=== PATIENT | female | born 1935 | race Hispanic/Latino ===

== ENCOUNTER 2017-11-19 12:56 | Outpatient (CLI) | payer MEDICARE, OTHER ==
--- NOTE | 2017-11-19 16:52 | Mammography Report ---
BONE DEXA:11/19/17 12:56:00 CLINICAL: Postmenopausal. COMPARISON: 11/21/11 TECHNIQUE: Two site bone DEXA performed on an Hologic scanner. FINDINGS: The average BMD of the lumbar spine L1, L3 and L4 is 0.827g/cm squared with a T-score of -2.1 and a Z-score of +0.7. The L2 vertebral body is excluded as an outlier. This compares to 0.857g/cm squared on the last exam and represents a -3.6% change from the previous baseline. The average BMD of the left hip is 0.641g/cm squared with a T-score of -2.5 and a Z-score of -0.3. This compares to 0.711g/cm squared on the last exam and represents a -0.9% change from the previous baseline. IMPRESSION: 1. WHO classification: Osteopenia with increased fracture risk based on spine measurements. 2. WHO classification: Osteoporosis with high fracture risk based on left hip measurements. 3. A moderate decline in both spine and left hip BMD compared to the previous exam. RECOMMENDATION: Clinical correlation and routine screening. DEFINITIONS: BMD = Bone Mineral Density T-score = BMD related to mean peak bone mass of young adult (mean expressed in Standard Deviation) Z-score = Age matched BMD expressed in SD World Health Organization (WHO) Diagnostic Criteria Normal T-score > -1 SD Osteopenia T-score between -1 and -2.4 SD Osteoporosis T-score -2.5 SD or below NOTE: BMD is not the only risk factor for fracture; also consider factors such as the patient's age, risk of falling, previous osteoporotic fracture, family history of osteoporotic fractures, current smoker, and low body weight. Z-scores are not calculated if >80 years of age.
== END 2017-11-19 12:57 | disposition home or self-care (01) ==
LOC: MAMMO 12:56
PROVIDERS: ATTEND Family Medicine
DX: Z78.0 Asymptomatic menopausal state (principal); M81.0 Age-related osteoporosis without current pathological fracture; M85.80 Other specified disorders of bone density and structure, unspecified site; F17.210 Nicotine dependence, cigarettes, uncomplicated; Z88.1 Allergy status to other antibiotic agents
CPT/HCPCS: 77080

== ENCOUNTER 2019-03-21 10:36 | Outpatient (CLI) | payer MEDICARE, OTHER ==
--- NOTE | 2019-03-26 08:40 | Mammography Report ---
BONE DEXA CLINICAL: Postmenopausal. COMPARISON: 11/19/2017 and 11/21/2011. She has had earlier studies at the 2012 exam is uses a baseline for comparing this study and the last study. TECHNIQUE: 2 site bone DEXA performed on an Hologic scanner. FINDINGS: The average BMD of the lumbar spine L1-L4 is 0.860g/cm squared with a T score of -1.7+1.1 and a Z sco re of . This compares to 0.858g/cm squared on the last exam and represents a +0.2 % change from the l ast study and a -3.6% change [from baseline]. The average BMD of the left hip is 0.629 g/cm squared with a T score of -2.6and a Z score of -0.3. Th is compares to 0.641 g/cm squared on the last exam and represents a -1.8 % change from the [last stud y and a -11.5% change from baseline]. IMPRESSION: 1. WHO classification: Osteopenia with increased fracture risk based on spine measurements. 2. WHO classification Osteoporosis with high fracture risk based on left hip measurements. 3. A modest improvement in spine BMD and a modest decline in left hip BMD the compared to the last ex am. RECOMMENDATION: Clinical correlation and routine screening. Definitions: BMD equal bone mineral density T score = BMD related to peak bone mass of young adult ([place] expressed an standard deviation) Z score = age-matched BMD expressed in SD World health organization (WHO) diagnostic criteria Normal T score greater than equal to 1 standard deviation Osteopenia T score between -1 and -2.4 standard deviation Osteoporosis T score -2.5 standard deviation or below. Note: BMD is not the only risk factor for fracture; also consider factors such as the patient's age, risk of falling, previous osteoporotic fracture, family history of osteoporotic fractures, current sm oker and low body weight. Z scores are not calculated if greater than 80 years of age. Signer Name: Corby Clemens MD Signed: 03/26/2019 8:35 AM Workstation Name: [id number]
== END 2019-03-21 10:37 | disposition home or self-care (01) ==
LOC: MAMMO 10:36
PROVIDERS: ATTEND Family Medicine
DX: M81.0 Age-related osteoporosis without current pathological fracture (principal); Z78.0 Asymptomatic menopausal state
CPT/HCPCS: 77080

== ENCOUNTER 2020-06-11 12:44 | Outpatient (CLI) | payer MEDICARE, OTHER ==
--- NOTE | 2020-06-11 14:27 | Mammography Report ---
DEXA BONE DENSITY SCAN INDICATION / CLINICAL INFORMATION: OSTEOPOROSIS. 84 years Female COMPARISON: 05/21/2018. LUMBAR SPINE, L1-L4: - Bone mineral density (BMD) = 0.860 g/cm2. - T-score = -1.7 - Z-score = 1.2 Change (%) since most recent prior (if available): No change LEFT HIP, TOTAL : - Bone mineral density (BMD) = 0.636 g/cm2. - T-score = -2.5 - Z-score = -0.2 Change (%) since most recent prior (if available): Increase of 1.1% IMPRESSION: 1. WHO Classification: Osteoporosis. Fracture Risk: High. BMD Reporting Guidelines (ISCD, 2015) BMD Reporting in Postmenopausal Women and in Men Age 50 and Older * T-scores are preferred. * The WHO densitometric classification is applicable. BMD Reporting in Females Prior to Menopause and in Males Younger Than Age 50 * Z-scores, not T-scores, are preferred. This is particularly important in children. * A Z-score of -2.0 or lower is defined as below the expected range for age, and a Z-score above -2. 0 is within the expected range for age. * Osteoporosis cannot be diagnosed in men under age 50 on the basis of BMD alone. * The WHO diagnostic criteria may be applied to women in the menopausal transition. http://www.iscd.org/official-positions/4069-maqd-bnlqstkc-positions-adult/ Signer Name: Derek Hilton MD Signed: 06/11/2020 2:22 PM Workstation Name: [id number]
== END 2020-06-11 12:45 | disposition home or self-care (01) ==
LOC: MAMMO 12:44
PROVIDERS: ATTEND Physician Assistant
DX: Z13.820 Encounter for screening for osteoporosis (principal); M81.0 Age-related osteoporosis without current pathological fracture
CPT/HCPCS: 77080

== ENCOUNTER 2020-07-07 09:21 | Outpatient (CLI) | payer MEDICARE, OTHER ==
--- NOTE | 2020-07-07 12:15 | Cat Scan Report ---
CTA ABDOMEN AND PELVIS WITHOUT AND WITH IV CONTRAST INDICATION: ANEURYSM OF OTHER SPECIFIED ARTERIES. TECHNIQUE: Axial CT images were obtained through the abdomen and pelvis before and after after injection of IV c ontrast. 3 plane MIP reconstructions were produced. All CT scans at this location are performed using CT dose reduction for ALARA by means of automated exposure control. COMPARISON: None available. FINDINGS: Aorta: Caliber of the abdominal aorta is normal. No acute findings. There is advanced atherosclerotic disease throughout with mild mural thrombus at the diaphragmatic hiatus. Renal arteries: No acute abnormality. Celiac artery: There is mild narrowing proximally. 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 There are 3 additional, smaller more peripheral sp lenic artery aneurysms/pseudoaneurysms which are largely thrombosed and measure approximately 4-6 mm. Superior mesenteric artery: Mild narrowing proximally. Inferior mesenteric artery: No acute abnormality. Right iliac arteries: No acute abnormality. There is minimal atherosclerotic calcification proximal c ommon iliac. Left iliac arteries: No acute abnormality. There is minimal atherosclerotic calcification proximally. Additional Findings: None millimeter hypodensity in the superior left hepatic lobe may be a cyst or i ncidental vascular lesion. Diverticulosis is noted in the colon. Bronchiectasis and lower airways dis ease are noted in the included lung bases. This is of uncertain chronicity. Cardiomegaly is noted tracey reese involving the atria. Skeletal Structures: No acute osseous abnormality. IMPRESSION: 1. No acute findings. 2. Advanced atherosclerotic disease throughout the abdominal aorta. No aneurysm. 3. Splenic artery aneurysms/pseudoaneurysms as above. The largest measures 1.4 cm at the level of the pancreatic tail. 4. Additional incidental findings as above. Signer Name: Morgan Castaneda MD Signed: 07/07/2020 12:11 PM Workstation Name: [id number]
== END 2020-07-07 09:22 | disposition home or self-care (01) ==
LOC: CT 09:21
PROVIDERS: ATTEND Surgery Vascular Surgery
DX: K57.30 Diverticulosis of large intestine without perforation or abscess without bleeding (principal); I72.8 Aneurysm of other specified arteries; I70.0 Atherosclerosis of aorta; J47.9 Bronchiectasis, uncomplicated; I70.8 Atherosclerosis of other arteries; I51.7 Cardiomegaly; R91.8 Other nonspecific abnormal finding of lung field
CPT/HCPCS: 36415; 74174; 82565; 84520; Q9967